=== PATIENT | female | born 1975 | race Caucasian/White ===

== ENCOUNTER 2022-02-11 00:08 | Inpatient (IN) ==
[2022-02-11] MEDS ORDERED: 0.9 % Sodium Chloride 2,000 ML ONE ×2 (00:27→00:49)
[2022-02-11] MEDS ORDERED: *HR* Ticagrelor 90 MG TABLET PO ONE (00:30)
[2022-02-11] MEDS ORDERED: *HR* Ticagrelor 90 MG TABLET ONE (00:30)
[2022-02-11] MEDS ORDERED: Nitroglycerin 0.4 MG TAB.SUBL SL ONE (00:32)
[2022-02-11] MEDS: Nitroglycerin 0.4 MG TAB.SUBL SL PRN ×2 (00:33→00:49)
[2022-02-11] MEDS ORDERED: Ondansetron 4 MG/2 ML VIAL IVP ONE (00:40)
[2022-02-11] MEDS ORDERED: *HR* Heparin 5,000 UNIT/ML VIAL IVP ONE (00:45)
[2022-02-11] MEDS ORDERED: Morphine Sulfate 2 MG/ML SYRINGE IVP ONE (00:46)
[2022-02-11] MEDS ORDERED: *HR* Midazolam HCl 2 MG/2 ML VIAL ONE (00:48)
[2022-02-11] MEDS ORDERED: *HR* FentaNYL (PF) 100 MCG/2 ML VIAL ONE (00:48)
[2022-02-11] MEDS ORDERED: *HR* Heparin 10,000 UNIT/10 ML VIAL ONE (00:49)
[2022-02-11] MEDS ORDERED: Iopamidol - 370 200 ML INFUS..BTL ONE (00:49)
[2022-02-11] MEDS ORDERED: Nitroglycerin 1,000 MCG/5 ML VIAL IV ONE (00:49)
[2022-02-11] MEDS ORDERED: Heparin 1,000 UNITS/500 mL 500 ML ONE ×2 (00:49→01:54)
[2022-02-11 00:59] LABS: Basophils # 0.1 K/mcL (0.0-0.2); Basophils % 0.4 %; Eosinophils # 0.3 K/mcL (0.0-0.6); Eosinophils % 1.7 %; Hematocrit 40.4 % (35.3-44.9); Hemoglobin 12.9 g/dL (11.5-15.4); Immature Granulocytes % 0.5 % (0-4); Lymphocytes # 4.1 K/mcL (0.6-4.6); Lymphocytes % 27.8 %; Mean Corpuscular HGB Conc 31.9 g/dL (31.6-35.5); Mean Corpuscular Hemoglobin 28.3 pg (28.0-33.3); Mean Corpuscular Volume 88.6 fL (83.0-100.0); Monocytes # 0.8 K/mcL (0.0-1.3); Monocytes % 5.5 %; Neutrophils # 9.5 K/mcL (1.6-8.9); Platelet Count 365 K/mcL (140-400); Red Blood Count 4.56 M/mcL (3.82-4.97); Red Cell Distribution Width 14.3 % (11.5-14.5); Segmented Neutrophils % 64.1 %; White Blood Count 14.8 K/mcL (4.3-11.1)
[2022-02-11 01:05] LABS: INR 0.9; Prothrombin Time 10.5 Seconds (9.4-12.1)
[2022-02-11 01:07] LABS: Activated Partial Thrombo Time 36.9 Seconds (26.0-36.0)
[2022-02-11] MEDS ORDERED: Tirofiban 12.5 MG/250ML 12.5 MG/250 ML BAG ONE (01:20)
[2022-02-11 01:40] LABS: BUN/Creatinine Ratio 21 (6-26); Blood Urea Nitrogen 12 mg/dL (6-20); Calcium 9.2 mg/dL (8.6-10.3); Carbon Dioxide 18 mEq/L (23-29); Chloride 102 mEq/L (98-107); Glucose 107 mg/dL (70-105); Osmolality,Calculated 280 (280-300); Potassium 3.6 mEq/L (3.5-5.1); Sodium 135 mEq/L (136-145)
[2022-02-11] MEDS ORDERED: Furosemide 40 MG/4 ML VIAL ONE (01:57)
[2022-02-11 02:38] LABS: Troponin I 0.03 ng/mL (< 0.04)
[2022-02-11] MEDS ORDERED: Tirofiban 12.5 MG/250ML 12.5 MG/250 ML BAG IVC SCH (03:15)
[2022-02-11 05:35] LABS: Basophils # 0.1 K/mcL (0.0-0.2); Basophils % 0.3 %; Eosinophils % 0.1 %; Hematocrit 39.8 % (35.3-44.9); Hemoglobin 12.7 g/dL (11.5-15.4); Immature Granulocytes % 0.6 % (0-4); Lymphocytes # 2.1 K/mcL (0.6-4.6); Lymphocytes % 11.8 %; Mean Corpuscular HGB Conc 31.9 g/dL (31.6-35.5); Mean Corpuscular Hemoglobin 28.2 pg (28.0-33.3); Mean Corpuscular Volume 88.4 fL (83.0-100.0); Mean Platelet Volume 9.9 fL (9.4-12.4); Monocytes % 5.7 %; Neutrophils # 14.4 K/mcL (1.6-8.9); Platelet Count 393 K/mcL (140-400); Red Cell Distribution Width 14.2 % (11.5-14.5); Segmented Neutrophils % 81.5 %; White Blood Count 17.6 K/mcL (4.3-11.1)
[2022-02-11 06:00] LABS: BUN/Creatinine Ratio 23 (6-26); Blood Urea Nitrogen 12 mg/dL (6-20); Calcium 8.6 mg/dL (8.6-10.3); Carbon Dioxide 22 mEq/L (23-29); Chloride 102 mEq/L (98-107); Glucose 126 mg/dL (70-105); Osmolality,Calculated 283 (280-300); Potassium 3.7 mEq/L (3.5-5.1); Sodium 136 mEq/L (136-145)
[2022-02-11] MEDS: Nicotine 21 MG PATCH.TD24 TD SCH (09:24)
[2022-02-11] MEDS: Aspirin 81 MG TAB.CHEW PO SCH (09:24)
[2022-02-11] MEDS: *HR* Ticagrelor 90 MG TABLET PO SCH ×2 (09:24→20:59)
[2022-02-11] MEDS: *HR* Heparin 5,000 UNIT/ML VIAL SQ SCH (16:38)
[2022-02-11] MEDS: Gabapentin 100 MG CAPSULE PO SCH ×2 (16:38→20:59)
[2022-02-11] MEDS: carvediloL 6.25 MG TABLET PO SCH (16:38)
[2022-02-11] MEDS ORDERED: Furosemide 20 MG/2 ML VIAL IVP ONE (17:00)
[2022-02-11] MEDS: Famotidine 20 MG TABLET PO SCH (20:58)
[2022-02-11] MEDS: *HR* OxyCODONE Immed Rel 15 MG TABLET PO PRN (23:11)
[2022-02-12] MEDS: *HR* Heparin 5,000 UNIT/ML VIAL SQ SCH ×2 (05:19→17:13)
[2022-02-12 05:58] LABS: Basophils % 0.3 %; Eosinophils # 0.2 K/mcL (0.0-0.6); Eosinophils % 1.7 %; Hematocrit 39.1 % (35.3-44.9); Hemoglobin 12.8 g/dL (11.5-15.4); Immature Granulocytes % 0.5 % (0-4); Lymphocytes # 4.1 K/mcL (0.6-4.6); Lymphocytes % 34.8 %; Mean Corpuscular HGB Conc 32.7 g/dL (31.6-35.5); Mean Corpuscular Hemoglobin 28.3 pg (28.0-33.3); Mean Corpuscular Volume 86.3 fL (83.0-100.0); Monocytes # 0.9 K/mcL (0.0-1.3); Monocytes % 7.6 %; Neutrophils # 6.5 K/mcL (1.6-8.9); Platelet Count 341 K/mcL (140-400); Red Blood Count 4.53 M/mcL (3.82-4.97); Red Cell Distribution Width 14.2 % (11.5-14.5); Segmented Neutrophils % 55.1 %; White Blood Count 11.8 K/mcL (4.3-11.1)
[2022-02-12 06:18] LABS: BUN/Creatinine Ratio 22 (6-26); Blood Urea Nitrogen 10 mg/dL (6-20); Calcium 9.4 mg/dL (8.6-10.3); Carbon Dioxide 25 mEq/L (23-29); Chloride 99 mEq/L (98-107); Glucose 107 mg/dL (70-105); Osmolality,Calculated 278 (280-300); Potassium 3.6 mEq/L (3.5-5.1); Sodium 134 mEq/L (136-145)
[2022-02-12] MEDS: Nicotine 21 MG PATCH.TD24 TD SCH (07:34)
[2022-02-12] MEDS: Aspirin 81 MG TAB.CHEW PO SCH (07:35)
[2022-02-12] MEDS: lisinopriL 10 MG TABLET PO SCH (07:35)
[2022-02-12] MEDS: *HR* Ticagrelor 90 MG TABLET PO SCH ×2 (07:35→20:57)
[2022-02-12] MEDS: Famotidine 20 MG TABLET PO SCH ×2 (07:35→20:57)
[2022-02-12] MEDS: Gabapentin 100 MG CAPSULE PO SCH ×3 (07:35→20:57)
[2022-02-12] MEDS: carvediloL 6.25 MG TABLET PO SCH ×2 (07:35→18:09)
[2022-02-12] MEDS ORDERED: *HR* FentaNYL (PF) 100 MCG/2 ML VIAL ONE (15:19)
[2022-02-12] MEDS ORDERED: *HR* Midazolam HCl 2 MG/2 ML VIAL ONE (15:19)
[2022-02-12] MEDS ORDERED: Nitroglycerin 1,000 MCG/5 ML VIAL IV ONE (15:20)
[2022-02-12] MEDS ORDERED: 0.9 % Sodium Chloride 2,000 ML ONE (15:20)
[2022-02-12] MEDS ORDERED: Iopamidol - 370 200 ML INFUS..BTL ONE (15:20)
[2022-02-12] MEDS ORDERED: Heparin 1,000 UNITS/500 mL 500 ML ONE ×2 (15:20→16:20)
[2022-02-12] MEDS ORDERED: *HR* Heparin 10,000 UNIT/10 ML VIAL ONE (15:20)
[2022-02-12] MEDS ORDERED: 0.9 % Sodium Chloride 500 ML IVC SCH (17:30)
[2022-02-12] MEDS: *HR* OxyCODONE Immed Rel 15 MG TABLET PO PRN (22:00)
[2022-02-13 05:17] LABS: Hematocrit 37.8 % (35.3-44.9); Hemoglobin 12.1 g/dL (11.5-15.4)
[2022-02-13 05:38] LABS: BUN/Creatinine Ratio 23 (6-26); Blood Urea Nitrogen 12 mg/dL (6-20)
[2022-02-13] MEDS: *HR* Heparin 5,000 UNIT/ML VIAL SQ SCH (05:46)
[2022-02-13] MEDS: Nicotine 21 MG PATCH.TD24 TD SCH (08:34)
[2022-02-13] MEDS: carvediloL 6.25 MG TABLET PO SCH (08:35)
[2022-02-13] MEDS: *HR* Ticagrelor 90 MG TABLET PO SCH (08:35)
[2022-02-13] MEDS: Aspirin 81 MG TAB.CHEW PO SCH (08:36)
[2022-02-13] MEDS: Gabapentin 100 MG CAPSULE PO SCH (08:36)
[2022-02-13] MEDS: Famotidine 20 MG TABLET PO SCH (08:36)
[2022-02-13] MEDS: lisinopriL 10 MG TABLET PO SCH (08:36)
[2022-02-13 09:06] LABS: Troponin I 18.63 ng/mL (< 0.04)
[2022-02-13 11:04] VITALS: BP 106/83
[2022-02-13 12:05] VITALS: TEMP 98.1
[2022-02-13 13:40] VITALS: PULSE 87; O2SAT 99
== END 2022-02-13 14:15 | disposition home or self-care (01) | DRG 246 ==
LOC: EMEROOARM 00:08 → ICNU 01:15
PROVIDERS: ADMIT Internal Medicine Cardiovascular Disease; ATTEND Internal Medicine Cardiovascular Disease